=== PATIENT | male | born 1960 | race African-American/Black ===

== ENCOUNTER 2023-04-10 14:12 | Inpatient (IN) | payer SELFPAY ==
[2023-04-10 21:10] VITALS: BMI 29.0
[2023-04-11] MEDS ORDERED: Acetaminophen 325 MG TAB PO PRN (01:39)
[2023-04-11] MEDS ORDERED: Ondansetron PF 4 MG/2 ML Vial IVP PRN (01:39)
[2023-04-11] MEDS ORDERED: hydrALAZINE 20 MG/ML VIAL SLOW IVP PRN (01:39)
[2023-04-11] MEDS ORDERED: Ondansetron ODT 4 MG TAB PO PRN (01:39)
[2023-04-11] MEDS ORDERED: Meclizine HCl 25 MG TAB PO PRN (01:48)
[2023-04-11 04:37] LABS: #Eosinphils 0.3 thou/uL (0.0-0.7); #Monocytes 0.9 thou/uL (0.11-0.59); #Neutrophils 3.3 thou/uL (1.40-6.50); %Basophils 0.2 % (0.0-1.0); %Eosinophils 3.1 % (0.0-10.0); %Lymphocytes 45.1 % (21.0-51.0); %Monocytes 10.8 % (0.0-10.0); %Neutrophils 40.6 % (42.0-75.0); Hematocrit 39.9 % (42.0-52.0); Hemoglobin 12.9 g/dL (14.0-18.0); Mean Corpuscular HGB CONC 32.3 g/dL (32.0-36.0); Mean Corpuscular Hemoglobin 28.7 pg (27.0-31.0); Mean Corpuscular Volume 88.7 fl (78.0-98.0); Mean Platelet Volume 10.3 fL (7.4-10.4); Platelet Count 236 10x3/uL (130-400); RBC Distribution Width 13.3 % (11.5-14.5); White Blood Cell (WBC) Count 8.1 10x3/uL (4.8-10.8)
[2023-04-11 05:03] LABS: Anion Gap 14 mmol/L (10-20); BUN (Urea Nitrogen) 11 mg/dL (8.4-25.7); Calc. Creatinine Clearance 131 mL/min (70-130); Calcium 9.4 mg/dL (7.8-10.44); Carbon Dioxide 22 mmol/L (23-31); Cardiac Risk 6.1 (Less than 4.5); Chloride 107 mmol/L (98-107); Cholesterol 195 mg/dl (< 200 Desired); Estimated GFR 102; Glucose 107 mg/dL (80-115); HDL Cholesterol 32 mg/dL (>60 Neg Risk); LDL Cholesterol, Calculated 86 mg/dL; Magnesium 1.8 mg/dL (1.6-2.6); Potassium 3.8 mmol/L (3.5-5.1); Sodium 139 mmol/L (136-145); Triglycerides 383 mg/dL (Less than 150)
[2023-04-11] MEDS ORDERED: Magnesium 2 GM/50 ML(in water) 2 GM in Premix 1 BAG IVPB SCH (08:00)
[2023-04-11] MEDS ORDERED: FLU VACC QS2023-24(6MOS UP)/PF 60 MCG/0.5 ML SYRINGE IM ONE (09:00)
[2023-04-11] MEDS: Aspirin 81 mg Enteric Coated Tablet PO SCH (09:18)
[2023-04-11] MEDS ORDERED: Nicotine 14 MG PATCH TD PRN (12:13)
[2023-04-11] MEDS ORDERED: Carvedilol 6.25 MG TAB PO SCH (17:15)
[2023-04-11] MEDS ORDERED: Atorvastatin Calcium 40 MG TAB PO SCH (21:00)
[2023-04-12] MEDS ORDERED: Carvedilol 6.25 MG TAB PO SCH (08:00)
[2023-04-12 08:02] VITALS: BP 149/104; TEMP 98.1
[2023-04-12] MEDS ORDERED: Loratadine 10 MG TAB PO SCH (08:30)
[2023-04-12] MEDS ORDERED: Fluticasone Propionate Nasal Spray 16 gm Bottle NASAL SCH (08:30)
[2023-04-12] MEDS ORDERED: Amoxicillin/Potassium Clav 875 MG TAB PO SCH (09:00)
[2023-04-12] MEDS ORDERED: Amlodipine 5 MG TAB PO SCH (09:00)
[2023-04-12] MEDS: Aspirin 81 mg Enteric Coated Tablet PO SCH (09:33)
== END 2023-04-12 11:42 | disposition home or self-care (01) | DRG 149 ==
LOC: 2SE 20:15 → OBSVTOIN 04-11 15:25
PROVIDERS: ADMIT Internal Medicine; ATTEND Internal Medicine
DX: R42 Dizziness and giddiness (principal); R51.9 Headache, unspecified; F17.210 Nicotine dependence, cigarettes, uncomplicated; J32.0 Chronic maxillary sinusitis; J32.2 Chronic ethmoidal sinusitis; J32.3 Chronic sphenoidal sinusitis; D53.9 Nutritional anemia, unspecified; E83.42 Hypomagnesemia; Z71.6 Tobacco abuse counseling
CPT/HCPCS: 36415; 70551; 80048; 80061; 83036; 83735; 84443; 85025; 90471; 90686; 93880; G0008; J3475